=== PATIENT | female | born 1955 | race Two or more races ===

== ENCOUNTER 2018-10-03 15:44 | Inpatient (IN) | payer BC ==
[~2018-10-03] VITALS: Ht 152.4 cm; Wt 46.7 kg
[2018-10-03 17:26] LABS: BASOPHILS % 0.4 % (0.0-2.0); EOSINOPHILS % 0.8 % (0.0-5.0); HEMATOCRIT. 38.5 % (36.0-48.0); HEMOGLOBIN. 12.9 g/dL (12.0-16.0); LYMPHOCYTES % 12.6 % (20.0-50.0); MEAN CORPUSCULAR HEMOGLOBIN 28.5 pg (28.0-32.0); MEAN CORPUSCULAR VOLUME 84.9 fL (81.0-99.0); MEAN PLATELET VOLUME 7.5 fl (7.4-10.4); MONOCYTES % 8.2 % (2.0-8.0); PLATELET 280 x1000/uL (130-400); RED BLOOD CELL COUNT 4.53 mill/uL (4.2-5.4); RED CELL DISTRIBUTION WIDTH 13.2 % (11.6-14.6)
[2018-10-03 17:31] LABS: CHLORIDE 106 mEq/L (98-107)
[2018-10-03 17:35] LABS: ETHANOL BLOOD < 10 mg/dL
[2018-10-03 17:36] LABS: PARTIAL THROMBOPLASTIN TIME 26.6 sec (23.4-31.0)
[2018-10-03 17:40] LABS: CREATINE KINASE 60 IU/L (26-192)
[2018-10-03 20:39] LABS: CLARITY URINE CLOUDY (CLEAR); COLOR URINE YELLOW (YELLOW); KETONES URINE TRACE (NEGATIVE); LEUKOCYTE ESTERASE URINE TRACE (NEGATIVE); NITRITE URINE NEGATIVE (NEGATIVE); OCCULT BLOOD URINE NEGATIVE (NEGATIVE); PH URINE 5.5 (4.5-8.0); PROTEIN URINE NEGATIVE (NEGATIVE); SPECIFIC GRAVITY URINE 1.025 (1.005-1.030); UROBILINOGEN URINE 0.2 E.U./dL (0.2-1.0)
[2018-10-03 20:53] LABS: *BARBITURATES SCREEN URINE NEGATIVE (NEGATIVE)
[2018-10-03 20:54] LABS: *AMPHETAMINES SCREEN URINE NEGATIVE (NEGATIVE)
[2018-10-03 20:56] LABS: *BENZODIAZEPINES SCREEN URINE NEGATIVE (NEGATIVE); *COCAINE SCREEN URINE NEGATIVE (NEGATIVE); METHADONE URINE SCREEN NEGATIVE (NEGATIVE); OPIATES URINE SCREEN NEGATIVE (NEGATIVE)
[2018-10-03 20:57] LABS: CANNABINOID URINE SCREEN NEGATIVE (NEGATIVE); PHENCYCLIDINE URINE SCREEN NEGATIVE (NEGATIVE)
[2018-10-03] MEDS ORDERED: SODIUM CHLORIDE 0.9% 1,000 ML IV ONE (21:29)
[2018-10-03] MEDS ORDERED: CEFTRIAXONE 1 G PREMIX 50 ML IV ONE (21:30)
[2018-10-03] MEDS ORDERED: POTASSIUM CHLORIDE 20MEQ TABLET SR PO ONE (21:45)
[2018-10-04] VITALS (8 sets, daily range): BP systolic 130–145; BP diastolic 79–83
[2018-10-04] MEDS ORDERED: INSU100I28 SQ (02:41)
[2018-10-04] MEDS ORDERED: INSLIS SUBCUT (02:41)
[2018-10-04] MEDS ORDERED: DEXTROSE 50% WATER 50ML SYRINGE IV PRN (04:30)
[2018-10-04] MEDS: BLOOD SUGAR DIAGNOSTIC STRIP TEST SCH ×8 (07:20→21:24)
[2018-10-04] MEDS: INSULIN LISPRO 100 UNITS/ML SUBCUT SCH ×4 (07:50→21:55)
[2018-10-04] MEDS ORDERED: POTASSIUM CHLORIDE 20MEQ TABLET SR PO PRN (09:00)
[2018-10-04] MEDS ORDERED: ONDANSETRON HCL 4MG/2ML INJ IV PRN (09:00)
[2018-10-04] MEDS ORDERED: ACETAMINOPHEN 325MG TABLET PO PRN (09:00)
[2018-10-04] MEDS: AMLODIPINE 10MG TABLET PO SCH (09:37)
[2018-10-04 11:45] LABS: BASOPHILS % 0.4 % (0.0-2.0); EOSINOPHILS % 1.4 % (0.0-5.0); HEMATOCRIT. 37.4 % (36.0-48.0); HEMOGLOBIN. 12.5 g/dL (12.0-16.0); MEAN CORPUSCULAR HEMOGLOBIN 28.7 pg (28.0-32.0); MEAN CORPUSCULAR VOLUME 85.9 fL (81.0-99.0); MONOCYTES % 5.3 % (2.0-8.0); NEUTROPHILS % 72.9 % (40.0-76.0); PLATELET 278 x1000/uL (130-400); RED BLOOD CELL COUNT 4.35 mill/uL (4.2-5.4); RED CELL DISTRIBUTION WIDTH 13.2 % (11.6-14.6)
[2018-10-04 15:48] LABS: CHLORIDE 106 mEq/L (98-107)
[2018-10-04] MEDS: SODIUM CHLORIDE 0.9% 1,000 ML IV SCH (17:38)
[2018-10-04] MEDS: NITROFURANTOIN 100MG M/M CAPSULE PO SCH (21:40)
[2018-10-04] MEDS ORDERED: CEFTRIAXONE 1 G PREMIX 50 ML IV SCH ×2 (22:00)
[2018-10-05] VITALS: BP 122/77
[2018-10-05 04:00] VITALS: BP 133/70
[2018-10-05] MEDS: SODIUM CHLORIDE 0.9% 1,000 ML IV SCH (05:40)
[2018-10-05] MEDS: BLOOD SUGAR DIAGNOSTIC STRIP TEST SCH ×4 (07:51→11:54)
[2018-10-05 08:00] VITALS: BP 130/80
[2018-10-05] MEDS: NITROFURANTOIN 100MG M/M CAPSULE PO SCH (08:19)
[2018-10-05] MEDS: AMLODIPINE 10MG TABLET PO SCH (08:19)
[2018-10-05] MEDS: INSULIN LISPRO 100 UNITS/ML SUBCUT SCH (08:25)
[2018-10-05 12:00] VITALS: BP 134/81
[2018-10-05] MEDS ORDERED: INSULIN LISPRO 100 UNITS/ML SUBCUT SCH (13:00)
[2018-10-05 16:00] VITALS: BP 126/74
== END 2018-10-05 15:58 | disposition home health service (06) | DRG 637 ==
LOC: ER 15:44 → 6EST 21:30 → ENRESERV 23:44
PROVIDERS: ADMIT Internal Medicine; ATTEND Internal Medicine
DX: E11.649 Type 2 diabetes mellitus with hypoglycemia without coma (principal); G93.41 Metabolic encephalopathy; N39.0 Urinary tract infection, site not specified; Z79.4 Long term (current) use of insulin; T50.905A Adverse effect of unspecified drugs, medicaments and biological substances, initial encounter; I10 Essential (primary) hypertension; E87.6 Hypokalemia; Z98.49 Cataract extraction status, unspecified eye; Y92.89 Other specified places as the place of occurrence of the external cause
CPT/HCPCS: 36415; 71045; 80048; 80305; 80307; 80329; 82550; 82962; 83880; 84443; 84484; 93005; 96365; 97162; 99285; G0482; J0696; J1815; J7030

== ENCOUNTER 2021-11-08 22:08 | Inpatient (IN) | payer BC ==
[~2021-11-08] VITALS: Ht 147.3 cm; Wt 58.1 kg
[~2021-11-08 22:08] MED LIST: INSLIS SUBCUT; INSU100I28 SQ
[2021-11-08] MEDS ORDERED: SODIUM CHLORIDE 0.9% 1000ML BAG (SEPSIS BOLUS) IV ONE (23:00)
[2021-11-08 23:45] LABS: BG BASE EXCESS -25.1 mmol/L (-2.0-2.0); BG CARBOXYHEMOGLOBIN 0.3 % (0.5-1.5); BG FRACTION INSPIRED OXYGEN 21; BG HCO3 ACT 3.2 mmol/L (22.0-26.0); BG METHEMOGLOBIN 0.4 % (0.0-1.5); BG OXYHEMOGLOBIN 97.3 % (94.0-97.0); BG PCO2 11.7 mmHg (35.0-45.0); BG PH 7.055 (7.350-7.450); BG PO2 157.3 mmHg (75.0-100.0); BG SAMPLE SITE RIGHT RADIAL; BG TOTAL HEMOGLOBIN 12.8 g/dL (12.0-18.0); BG VENT MODE ROOM AIR
[2021-11-08 23:47] LABS: HEMATOCRIT. 40.7 % (36.0-48.0); HEMOGLOBIN. 12.1 g/dL (12.0-16.0); MEAN CORPUSCULAR HEMOGLOBIN 27.8 pg (28.0-32.0); MEAN CORPUSCULAR VOLUME 93.4 fL (81.0-99.0); MEAN PLATELET VOLUME 8.3 fl (7.4-10.4); PLATELET 303 x1000/uL (130-400); RED BLOOD CELL COUNT 4.35 mill/uL (4.2-5.4); RED CELL DISTRIBUTION WIDTH 14.2 % (11.6-14.6)
[2021-11-08] MEDS ORDERED: SODIUM BICARBONATE 150 MEQ in DEXTROSE 5% WATER 1,000 ML IV NR (23:48)
[2021-11-08 23:53] LABS: CHLORIDE 95 mEq/L (98-107)
[2021-11-08 23:58] LABS: ETHANOL BLOOD < 10 mg/dL
[2021-11-09] MEDS ORDERED: SODIUM BICARBONATE 8.4% 1 MEQ/ML 50ML SYR IV NR ×3
[2021-11-09] MEDS ORDERED: INSULIN REGULAR (DRIP) 100 UNITS in SODIUM CHLORIDE 0.9% 99 ML IV SCH (00:30)
[2021-11-09 00:33] LABS: PLATELET ESTIMATE NORMAL
[2021-11-09] MEDS ORDERED: SODIUM CHLORIDE 0.9% 1,000 ML IV SCH ×2 (02:30→02:45)
[2021-11-09 02:44] LABS: CLARITY URINE CLEAR (CLEAR); COLOR URINE YELLOW (YELLOW); KETONES URINE 4+ (NEGATIVE); LEUKOCYTE ESTERASE URINE NEGATIVE (NEGATIVE); NITRITE URINE NEGATIVE (NEGATIVE); OCCULT BLOOD URINE NEGATIVE (NEGATIVE); PROTEIN URINE TRACE (NEGATIVE); SPECIFIC GRAVITY URINE 1.022 (1.005-1.030); UROBILINOGEN URINE 0.2 E.U./dL (0.2-1.0)
[2021-11-09 03:13] LABS: *AMPHETAMINES SCREEN URINE NEGATIVE (NEGATIVE); *BARBITURATES SCREEN URINE NEGATIVE (NEGATIVE); *BENZODIAZEPINES SCREEN URINE NEGATIVE (NEGATIVE)
[2021-11-09 03:14] LABS: *COCAINE SCREEN URINE NEGATIVE (NEGATIVE); CANNABINOID URINE SCREEN NEGATIVE (NEGATIVE); METHADONE URINE SCREEN NEGATIVE (NEGATIVE); OPIATES URINE SCREEN NEGATIVE (NEGATIVE); PHENCYCLIDINE URINE SCREEN NEGATIVE (NEGATIVE)
[2021-11-09] MEDS ORDERED: BISACODYL 10MG SUPP PR PRN (08:00)
[2021-11-09] MEDS ORDERED: ACETAMINOPHEN 325MG TABLET PO PRN (08:00)
[2021-11-09] MEDS ORDERED: BISACODYL 10MG SUPP PR SCH (08:00)
[2021-11-09] MEDS: DEXT 5%/0.45% NACL 1000ML 1,000 ML IV SCH ×2 (08:10→16:49)
[2021-11-09] MEDS: PANTOPRAZOLE SODIUM 40 MG/VIAL IV SCH (09:26)
[2021-11-09 14:30] LABS: PHOSPHORUS 3.7 mg/dL (2.5-4.9)
[2021-11-09] MEDS ORDERED: MAGNESIUM SULFATE 3 GM in DEXTROSE 5% WATER 100 ML IV NR (22:00)
[2021-11-09] MEDS: KCL 20MEQ/100ML PREMIX 100 ML IV SCH (22:20)
[2021-11-10] MEDS: KCL 20MEQ/100ML PREMIX 100 ML IV SCH (00:12)
[2021-11-10] MEDS: DEXT 5%/0.45% NACL 1000ML 1,000 ML IV SCH ×2 (00:12→08:33)
[2021-11-10] MEDS ORDERED: LEVOFLOXACIN 500MG PREMIX 100 ML IV SCH (01:00)
[2021-11-10] MEDS ORDERED: SODIUM PHOS,M-BASIC-D-BASIC 15 MM in DEXT 5% WATER 245 ML IV NR (01:30)
[2021-11-10] MEDS ORDERED: VANCOMYCIN 1250MG in DEXTROSE 5% WATER 250ML IV NR (02:00)
[2021-11-10] MEDS ORDERED: KCL 10MEQ/50ML PREMIX 50 ML IV NR (02:00)
[2021-11-10 03:22] LABS: CHLORIDE 111 mEq/L (98-107)
[2021-11-10 06:32] LABS: HEMATOCRIT. 33.6 % (36.0-48.0); HEMOGLOBIN. 10.9 g/dL (12.0-16.0); MEAN CORPUSCULAR VOLUME 83.1 fL (81.0-99.0); MEAN PLATELET VOLUME 8.7 fl (7.4-10.4); PLATELET 186 x1000/uL (130-400); RED BLOOD CELL COUNT 4.04 mill/uL (4.2-5.4); RED CELL DISTRIBUTION WIDTH 13.2 % (11.6-14.6)
[2021-11-10 06:43] LABS: CHLORIDE 111 mEq/L (98-107)
[2021-11-10] MEDS ORDERED: INSULIN LISPRO (LOW DOSE) 100 UNITS/ML SUBCUT SCH (07:31)
[2021-11-10] MEDS ORDERED: DEXTROSE 50% WATER 50ML SYRINGE IV PRN (07:45)
[2021-11-10] MEDS: BLOOD SUGAR DIAGNOSTIC STRIP TEST SCH ×5 (08:32→22:46)
[2021-11-10 10:20] VITALS: BP 124/77
[2021-11-10 10:30] VITALS: BP 127/74
[2021-11-10 10:33] LABS: PLATELET ESTIMATE NORMAL
[2021-11-10] MEDS ORDERED: ASPI-1497 MT (11:34)
[2021-11-10 12:30] VITALS: BP 122/78
[2021-11-10 12:43] LABS: CHLORIDE 108 mEq/L (98-107)
[2021-11-10] MEDS: ONDANSETRON HCL 4MG/2ML INJ IV PRN (13:12)
[2021-11-10] MEDS: PANTOPRAZOLE SODIUM 40 MG/VIAL IV SCH (13:12)
[2021-11-10] MEDS ORDERED: ACETAMINOPHEN 650MG SUPP PR PRN (13:15)
[2021-11-10] MEDS ORDERED: HYDROCODONE/ACETAMINOPHEN 5/325MG TABLET PO PRN (13:15)
[2021-11-10] MEDS ORDERED: POTASSIUM CHLORIDE INJ 40 MEQ in DEXT 5% WATER 250 ML IV ONE (13:15)
[2021-11-10] MEDS ORDERED: BISACODYL 10MG SUPP PR PRN (13:15)
[2021-11-10] MEDS: INSULIN LISPRO 100 UNITS/ML SUBCUT SCH ×3 (13:30→22:46)
[2021-11-10] MEDS ORDERED: NALOXONE HCL 0.4MG/ML VIAL IV PRN (13:45)
[2021-11-10] MEDS: SODIUM CHLORIDE 0.45% 1,000 ML IV SCH (13:51)
[2021-11-10] MEDS ORDERED: INSULIN GLARGINE UD 100 UNITS/ML SYR SUBCUT NR (14:30)
[2021-11-10] MEDS ORDERED: KCL 20MEQ/100ML PREMIX 100 ML IV NR ×2 (14:30→17:00)
[2021-11-10] MEDS: ENOXAPARIN 40MG/0.4ML SYR SUBCUT SCH (14:58)
[2021-11-10 15:24] LABS: BG BASE EXCESS -4.2 mmol/L (-2.0-2.0); BG CARBOXYHEMOGLOBIN 0.2 % (0.5-1.5); BG DEOXYHEMOGLOBIN 3.6 % (0.0-5.0); BG FRACTION INSPIRED OXYGEN 21; BG HCO3 ACT 19.5 mmol/L (22.0-26.0); BG METHEMOGLOBIN 0.3 % (0.0-1.5); BG OXYGEN SATURATION 96.4 % (92.0-98.5); BG OXYHEMOGLOBIN 95.9 % (94.0-97.0); BG PCO2 31.4 mmHg (35.0-45.0); BG PH 7.411 (7.350-7.450); BG PO2 91.1 mmHg (75.0-100.0); BG SAMPLE SITE LEFT BRACHIAL; BG TOTAL HEMOGLOBIN 11.6 g/dL (12.0-18.0); BG VENT MODE ROOM AIR
[2021-11-10 16:30] VITALS: BP 130/68
[2021-11-10] MEDS: VANCOMYCIN 750 MG PREMIX 150 ML IV SCH (18:37)
[2021-11-10] MEDS: DOCUSATE SODIUM 100MG CAPSULE PO SCH (18:38)
[2021-11-10 20:00] VITALS: BP 129/64
[2021-11-10 21:31] LABS: CHLORIDE 106 mEq/L (98-107)
[2021-11-10] MEDS: INSULIN GLARGINE UD 100 UNITS/ML SYR SUBCUT SCH (22:45)
[2021-11-10] MEDS: LEVOFLOXACIN 500MG PREMIX 100 ML IV SCH (22:46)
[2021-11-10 23:18] LABS: CHLORIDE 107 mEq/L (98-107)
[2021-11-11] VITALS: BP 129/76
[2021-11-11] MEDS: BLOOD SUGAR DIAGNOSTIC STRIP TEST SCH ×6 (02:28→20:48)
[2021-11-11] MEDS: INSULIN LISPRO 100 UNITS/ML SUBCUT SCH ×6 (02:28→20:50)
[2021-11-11] MEDS: VANCOMYCIN 750 MG PREMIX 150 ML IV SCH ×2 (03:41→15:46)
[2021-11-11 04:00] VITALS: BP 132/81
[2021-11-11] MEDS: ONDANSETRON HCL 4MG/2ML INJ IV PRN ×2 (04:54→17:04)
[2021-11-11 07:54] LABS: BASOPHILS % 0.6 % (0.0-2.0); EOSINOPHILS % 0.1 % (0.0-5.0); HEMATOCRIT. 31.1 % (36.0-48.0); HEMOGLOBIN. 10.4 g/dL (12.0-16.0); LYMPHOCYTES % 13.4 % (20.0-50.0); MEAN CORPUSCULAR HEMOGLOBIN 28.1 pg (28.0-32.0); MEAN CORPUSCULAR VOLUME 84.1 fL (81.0-99.0); MEAN PLATELET VOLUME 8.6 fl (7.4-10.4); MONOCYTES % 10.1 % (2.0-8.0); NEUTROPHILS % 75.8 % (40.0-76.0); PLATELET 175 x1000/uL (130-400); RED CELL DISTRIBUTION WIDTH 13.6 % (11.6-14.6)
[2021-11-11 08:00] VITALS: BP 137/71
[2021-11-11 08:05] LABS: PROTHROMBIN TIME 10.3 sec (9.6-11.0)
[2021-11-11 08:22] LABS: CHLORIDE 109 mEq/L (98-107)
[2021-11-11] MEDS: SODIUM CHLORIDE 0.45% 1,000 ML IV SCH ×3 (09:15→20:48)
[2021-11-11] MEDS: FAMOTIDINE 20MG/2ML VIAL IV SCH (10:52)
[2021-11-11] MEDS: DOCUSATE SODIUM 100MG CAPSULE PO SCH ×2 (10:53→17:00)
[2021-11-11] MEDS: ENOXAPARIN 40MG/0.4ML SYR SUBCUT SCH ×2 (10:53→13:15)
[2021-11-11] MEDS: INSULIN GLARGINE UD 100 UNITS/ML SYR SUBCUT SCH ×2 (10:55→21:54)
[2021-11-11 12:00] VITALS: BP 139/78
[2021-11-11] MEDS ORDERED: POTASSIUM CHLORIDE 20MEQ TABLET SR PO NR (12:00)
[2021-11-11] MEDS ORDERED: INSLIS SUBCUT (15:55)
[2021-11-11] MEDS ORDERED: METO5TAB86 MT (15:55)
[2021-11-11] MEDS ORDERED: INSU100I28 SQ (15:55)
[2021-11-11] MEDS ORDERED: LEVO500T89 MT (15:55)
[2021-11-11 16:00] VITALS: BP 135/69
[2021-11-11] MEDS ORDERED: LACTULOSE 20G/30ML UDC PO NR (16:30)
[2021-11-11] MEDS ORDERED: BISACODYL 10MG SUPP PR NR (16:30)
[2021-11-11] MEDS ORDERED: METOCLOPRAMIDE HCL 10MG/2ML VIAL IV NR (16:30)
[2021-11-11] MEDS: METOCLOPRAMIDE HCL 10MG/2ML VIAL IV SCH (17:57)
[2021-11-11 20:00] VITALS: BP 136/66
[2021-11-11] MEDS: LEVOFLOXACIN 500MG PREMIX 100 ML IV SCH (20:48)
[2021-11-12] VITALS: BP 130/61
[2021-11-12] MEDS: METOCLOPRAMIDE HCL 10MG/2ML VIAL IV SCH ×3 (00:50→12:44)
[2021-11-12] MEDS: VANCOMYCIN 750 MG PREMIX 150 ML IV SCH (03:52)
[2021-11-12 04:02] VITALS: BP 127/65
[2021-11-12] MEDS: SODIUM CHLORIDE 0.45% 1,000 ML IV SCH (05:09)
[2021-11-12] MEDS: BLOOD SUGAR DIAGNOSTIC STRIP TEST SCH ×2 (07:20→12:44)
[2021-11-12] MEDS: INSULIN LISPRO 100 UNITS/ML SUBCUT SCH ×2 (07:20→12:47)
[2021-11-12 08:00] VITALS: BP 148/83
[2021-11-12] MEDS: FAMOTIDINE 20MG/2ML VIAL IV SCH (08:31)
[2021-11-12] MEDS: DOCUSATE SODIUM 100MG CAPSULE PO SCH (08:31)
[2021-11-12 10:02] VITALS: BP 148/83
[2021-11-12] MEDS: INSULIN GLARGINE UD 100 UNITS/ML SYR SUBCUT SCH (10:33)
[2021-11-12 12:00] VITALS: BP 144/80
== END 2021-11-12 15:51 | disposition home or self-care (01) | DRG 637 ==
LOC: ER 22:08 → MICUSO 11-09 00:50 → 6WST 11-10 10:29
PROVIDERS: ADMIT Internal Medicine; ATTEND Internal Medicine
DX: E11.10 Type 2 diabetes mellitus with ketoacidosis without coma (principal); G93.41 Metabolic encephalopathy; K85.90 Acute pancreatitis without necrosis or infection, unspecified; E44.1 Mild protein-calorie malnutrition; E87.1 Hypo-osmolality and hyponatremia; K56.7 Ileus, unspecified; E86.0 Dehydration; E87.6 Hypokalemia; E87.8 Other disorders of electrolyte and fluid balance, not elsewhere classified; Z20.822 Contact with and (suspected) exposure to COVID-19; I10 Essential (primary) hypertension; K56.41 Fecal impaction; Z79.4 Long term (current) use of insulin; Z82.49 Family history of ischemic heart disease and other diseases of the circulatory system; Z91.19 Patient's noncompliance with other medical treatment and regimen; Z88.0 Allergy status to penicillin; Z88.2 Allergy status to sulfonamides; Z88.7 Allergy status to serum and vaccine; Z88.6 Allergy status to analgesic agent; Z91.040 Latex allergy status; Z68.26 Body mass index [BMI] 26.0-26.9, adult
CPT/HCPCS: 36415; 36600; 71045; 74018; 74176; 76700; 80048; 80053; 80202; 80320; 82010; 82140; 82375; 82805; 82962; 83036; 83605; 84145; 84484; 85025; 86850; 86900; 93005; 93306; 97161; 99291; C9113; J1650; J1815; J1956; J2405; J2765; J3370; J3480; J3490; J7030; J7060; J7070; G0480